=== PATIENT | male | born 1995 | race Two or more races ===

== ENCOUNTER 2022-08-17 16:41 | Emergency (ER) | payer SELFPAY ==
[2022-08-17 16:48] VITALS: BP 135/85; PULSE 78; RESP 16; TEMP 36.8; O2SAT 98; BMI 29.8
--- NOTE | 2022-08-17 16:58 | XR_ITS ---
[facility] [place] [id number] Patient Name: WESLY CORTÉS MRN: [id number] date: 1995 Sex: M Assigned Patient Location: ER Current Patient Location: ED.MAIN Accession/Order Number: [id number] Exam Date: 08/17/2022 16:59 Report Date: 08/17/2022 17:20 At the request of: DEANNA BUENO Procedure: XR toe RT min 2V STUDY: XR toe RT min 2V, [id number] HISTORY: toe pain COMPARISON: None FINDINGS/IMPRESSION: No acute fracture, dislocation, or suspicious osseous lesion. No radiopaque foreign body. Electronically authenticated by: ESTUARDO FERNANDEZ Date: 08/17/2022 17:20
--- NOTE | 2022-08-17 16:58 | ED.EXTPRO1 ---
HPI - Extremity Problem General Chief complaint: Extremity Problem, Nontraumatic Stated complaint: WOUND CHECK RIGHT FOOT Time Seen by Provider: 08/17/22 16:55 Source: patient Mode of arrival: walk-in Limitations: no limitations History of Present Illness HPI Narrative: patient is a 27-year-old male presents to the emergency Department for pain, swelling and a wound to the right 5th toe. He states he does not know if he may have injured the toe, he has had a swollen, scabbed area adjacent to the nail for the last several days. No medications taken prior to arrival. He denies any drainage from the area.. He states he is having trouble walking because of pain in the toe. Related Data Previous Rx's Medication Instructions Recorded bacitracin 500 unit/gram topical 1 applic topical DAILY #14 grams 08/17/22 ointment cephalexin 500 mg capsule 500 mg PO Q8H 10 days #21 caps 08/17/22 ketorolac 10 mg tablet 10 mg PO TID PRN pain #10 tabs 08/17/22 Allergies Allergy/AdvReac Type Severity Reaction Status Date / Time No Known Drug Allergies Allergy Verified 08/17/22 16:51 Review of Systems ROS Constitutional Denies: fever or chills Ears, nose, mouth, and throat Denies: throat pain or neck pain Respiratory Denies: shortness of breath or cough Gastrointestinal Denies: nausea or vomiting Genitourinary Denies: painful urination or urinary frequency Musculoskeletal Denies: back pain Integumentary/Breast Denies: rash Neurological Denies: headache PFSH PFSH Social History Smoking status: Current every day smoker Exam Narrative Exam Narrative: Gen.: Awake, alert, in no distress Head: Normocephalic, atraumatic ENT: Moist mucous membranes Respiratory: No respiratory distress Extremities: Moves extremities equally, right 5th toe with mild edema and minimal erythema noted proximal to the toenail. Small abrasion/scabbed area adjacent to the medial aspect of the toenail. No large areas of abscess or open wounds, no circumferential erythema or evidence of cellulitis Psych: Normal mood and affect Neuro: No focal neuro deficit Skin: Warm, dry, intact Constitutional Vital Signs - 24 hr 08/17/22 16:48 Temperature 98.2 F Pulse Rate [Monitor] 78 Respiratory Rate 16 Blood Pressure [Left Arm] 135/85 H Pulse Oximetry 98 Oxygen Delivery Method Room Air Course Vital Signs Vital signs: Vital Signs Temperature 98.2 F 08/17/22 16:48 Pulse Rate 78 08/17/22 16:48 Respiratory Rate 16 08/17/22 16:48 Blood Pressure 135/85 H 08/17/22 16:48 Pulse Oximetry 98 08/17/22 16:48 Oxygen Delivery Method Room Air 08/17/22 16:48 Temperature 98.2 F 08/17/22 16:48 Pulse Rate 78 08/17/22 16:48 Respiratory Rate 16 08/17/22 16:48 Blood Pressure 135/85 H 08/17/22 16:48 Pulse Oximetry 98 08/17/22 16:48 Oxygen Delivery Method Room Air 08/17/22 16:48 MDM - Extremity (Nontraumatic) MDM Narrative Medical decision making narrative: x-rays are unremarkable, exam is consistent with wound/abrasion versus ingrown toenail. Patient is given topical ointment, short course of Keflex and a short course of NSAIDs with a referral to podiatry. Follow-up with PCP and podiatry and return to the Emergency Room if symptoms change or worsen. Discharge Plan Discharge Chief Complaint: Extremity Problem, Nontraumatic Clinical Impression: Ingrown toenail, Wound of toenail Patient Disposition: Home, Self-Care Time of Disposition Decision: 17:11 Condition: Good Prescriptions / Home Meds: New ketorolac 10 mg tablet 10 mg PO TID PRN (Reason: pain) Qty: 10 0RF cephalexin 500 mg capsule 500 mg PO Q8H 10 Days Qty: 21 0RF bacitracin 500 unit/gram ointment 1 applic topical DAILY Qty: 14 0RF Instructions: Ingrown Nail (ED), Abrasion (ED) Additional Instructions: Follow up with Dr. Alcantara Stand Alone Forms: Portal Instructions Referrals: Physician,Non-Staff, MD [Primary Care Provider] - 1 week
== END 2022-08-17 17:42 | disposition home or self-care (01) ==
PROVIDERS: Emergency Provider Emergency Medicine Emergency Medical Services
DX: L60.0 Ingrowing nail (principal); S90.414A Abrasion, right lesser toe(s), initial encounter; F17.210 Nicotine dependence, cigarettes, uncomplicated; X58.XXXA Exposure to other specified factors, initial encounter
CPT/HCPCS: 73660; 99283

== ENCOUNTER 2022-09-20 21:30 | Emergency (ER) | payer SELFPAY ==
[2022-09-20 21:34] VITALS: BP 144/77; PULSE 101; RESP 18; TEMP 36.8; O2SAT 99; BMI 29.8
--- NOTE | 2022-09-20 21:57 | ED.WOUNDLAC1 ---
HPI - Wound/Laceration General Chief Complaint: Wound/Laceration Stated Complaint: LACERATION/PUNCTURE Time Seen by Provider: 09/20/22 21:56 Source: patient Mode of arrival: walk-in Limitations: no limitations History of Present Illness HPI narrative: cut thumb with his knife about 1:30 pm . States still bleeds on and off. Not bleeding now. not sure when last Tetanus shot Related Data Previous Rx's Medication Instructions Recorded bacitracin 500 unit/gram topical 1 applic topical DAILY #14 grams 08/17/22 ointment cephalexin 500 mg capsule 500 mg PO Q8H 10 days #21 caps 08/17/22 ketorolac 10 mg tablet 10 mg PO TID PRN pain #10 tabs 08/17/22 Allergies Allergy/AdvReac Type Severity Reaction Status Date / Time No Known Drug Allergies Allergy Verified 09/20/22 21:34 Review of Systems ROS Status of ROS 10 or more systems reviewed and unremarkable except as noted in history and below [facility] Social History Smoking status: Current every day smoker Exam Constitutional Vital Signs, click to edit/add: Last Vital Signs Temp 98.2 F 09/20/22 21:34 Pulse 101 H 09/20/22 21:34 Resp 18 09/20/22 21:34 BP 144/77 H 09/20/22 21:34 Pulse Ox 99 09/20/22 21:34 O2 Del Method Room Air 09/20/22 21:34 Common normals: no apparent distress, average body habitus, oriented x3, no limitations, healthy appearing and alert Eye Common normals: EOMs intact bilaterally and conjunctivae normal Respiratory Common normals: normal respiratory effort, no retractions and no use of accessory muscles Cardio Common normals: regular rhythm, S1 normal heart sound and S2 normal heart sound Extremity Other: superficial 12mm lac fat pad right thumb Neuro Common normals: oriented x3, CN's II-XII intact bilaterally, moves all extremities, no focal motor deficits and no sensory deficits noted Psych Appearance: grossly normal Course Vital Signs Vital signs: Vital Signs Temperature 98.2 F 09/20/22 21:34 Pulse Rate 101 H 09/20/22 21:34 Respiratory Rate 18 09/20/22 21:34 Blood Pressure 144/77 H 09/20/22 21:34 Pulse Oximetry 99 09/20/22 21:34 Oxygen Delivery Method Room Air 09/20/22 21:34 Temperature 98.2 F 09/20/22 21:34 Pulse Rate 101 H 09/20/22 21:34 Respiratory Rate 18 09/20/22 21:34 Blood Pressure 144/77 H 09/20/22 21:34 Pulse Oximetry 99 09/20/22 21:34 Oxygen Delivery Method Room Air 09/20/22 21:34 MDM - Wound/Laceration MDM Narrative Medical decision making narrative: presents with minor lac right thumb. lac repaired without incident. patient discharged home. Prescribed keflex as lac is 10 hour old. Discharge Plan Discharge Chief Complaint: Wound/Laceration Clinical Impression: Laceration of thumb Patient Disposition: Home, Self-Care Prescriptions / Home Meds: No Action ketorolac 10 mg tablet 10 mg PO TID PRN (Reason: pain) Qty: 10 0RF cephalexin 500 mg capsule 500 mg PO Q8H 10 Days Qty: 21 0RF bacitracin 500 unit/gram ointment 1 applic topical DAILY Qty: 14 0RF Instructions: Finger Laceration (ED) Additional Instructions: have wound rechecked in 2-3 days and stitches removed in 10 days Stand Alone Forms: Portal Instructions Referrals: Physician,Non-Staff, MD [Primary Care Provider] - 1 week Procedures ED Procedure Instructions Procedures Procedures: right thumb lac. 12mm superficial lac. 1% lido . cleaned with betadine and rinsed with NS. Closed with #2 3.0 prolene stitches
[2022-09-20] MEDS: ADACEL DIPH,PERTUSS(ACELL),TET VAC/PF 0.5 ML ADULT SYRINGE IM (22:10)
[2022-09-20] MEDS: CEPHALEXIN 500 MG CAPSULE PO (23:02)
== END 2022-09-20 23:10 | disposition home or self-care (01) ==
PROVIDERS: Emergency Provider Internal Medicine
DX: S61.011A Laceration without foreign body of right thumb without damage to nail, initial encounter (principal); W26.0XXA Contact with knife, initial encounter; Z23 Encounter for immunization
CPT/HCPCS: 12001; 90471; 90715; 99284

== ENCOUNTER 2022-09-30 12:55 | Emergency (ER) | payer SELFPAY ==
[2022-09-30 12:57] VITALS: BP 127/74; PULSE 68; RESP 16; TEMP 36.8; O2SAT 97; BMI 29.8
--- NOTE | 2022-09-30 13:02 | ED_ITS ---
HPI - Skin/Abscess/Foreign Bdy General Chief complaint: Skin/Abscess/Foreign Body Stated complaint: CAME TO GET STITCHES REMOVED Time Seen by Provider: 09/30/22 13:02 Source: patient Mode of arrival: walk-in Limitations: no limitations History of Present Illness HPI narrative: Patient presents to the emergency department for suture removal. Patient states he sustained a laceration to his right thumb 10 days ago. He had 2 prolene sutures. He states one of the stitches came out loose. He was taking antibiotics. He denies any problems with the laceration. Denies any signs of infection. Related Data Allergies Allergy/AdvReac Type Severity Reaction Status Date / Time No Known Drug Allergies Allergy Verified 09/30/22 13:01 Review of Systems ROS Status of ROS 10 or more systems reviewed and unremarkable except as noted in history and below [facility] Social History Smoking status: Current every day smoker Exam Constitutional Vital Signs, click to edit/add: Last Vital Signs Temp 98.2 F 09/30/22 12:57 Pulse 68 09/30/22 12:57 Resp 16 09/30/22 12:57 BP 127/74 09/30/22 12:57 Pulse Ox 97 09/30/22 12:57 O2 Del Method Room Air 09/30/22 12:57 Common normals: no apparent distress General appearance: cooperative and comfortable Orientation/consciousness: Yes awake, Yes oriented to person, Yes oriented to place and Yes oriented to time HENVT Common normals: normocephalic and head/scalp atraumatic Face and sinus: normal facial exam Eye General eye: normal appearance of both eyes Neck & C-Spine Common normals: full ROM Extremity Other: Right thumb with laceration to the distal palmar phalanx with 2 sut[address] the 2nd one is undone but still in the subcutaneous tissue. There is no erythema, no ecchymosis, no dehiscence, no signs of infection. Capillary refill is brisk. Course Vital Signs Vital signs: Vital Signs Temperature 98.2 F 09/30/22 12:57 Pulse Rate 68 09/30/22 12:57 Respiratory Rate 16 09/30/22 12:57 Blood Pressure 127/74 09/30/22 12:57 Pulse Oximetry 97 09/30/22 12:57 Oxygen Delivery Method Room Air 09/30/22 12:57 Temperature 98.2 F 09/30/22 12:57 Pulse Rate 68 09/30/22 12:57 Respiratory Rate 16 09/30/22 12:57 Blood Pressure 127/74 09/30/22 12:57 Pulse Oximetry 97 09/30/22 12:57 Oxygen Delivery Method Room Air 09/30/22 12:57 MDM - Skin/Abscess/Foreign Bdy MDM Narrative Medical decision making narrative: 2 sutures were removed without any problems. There is no dehiscence noted, no signs of infection. At this time the patient is without objective evidence of an acute process requiring hospitalization or inpatient management. The patient has remained hemodynamically stable. No additional indication for emergent studies at this time. I answered all questions. Discussed discharge instructions including standard anticipatory guidance and what should prompt a return to the emergency department, including if they get worse are not getting better or develops any new or concerning symptoms. I've given them specific time frame in which to follow-up, and who to follow-up with. The patient demonstrates understanding. Patient is nontoxic and stable for discharge with outpatient follow-up. This note was created with the assistance of a speech recognition program. Although the intention is to generate documents that actually reflects the content of the visit, no guarantees can be provided that every mistake has been identified and corrected by editing. Discharge Plan Discharge Chief Complaint: Skin/Abscess/Foreign Body Clinical Impression: Encounter for removal of sutures Patient Disposition: Home, Self-Care Time of Disposition Decision: 13:07 Condition: Good Mode of Transportation: Private Vehicle Instructions: Stitches Removal (ED) Stand Alone Forms: Portal Instructions Referrals: KISHA PARKS APRN [Physician] - 1 week Physician,Non-Staff, [Primary Care Provider] - 1 week
--- NOTE | 2022-09-30 13:08 | PC.NURSE ---
1 suture right thumb pad. Area well approximated with no S/S of infection
== END 2022-09-30 13:27 | disposition home or self-care (01) ==
LOC: ER 13:12
PROVIDERS: Emergency Provider Emergency Medicine
DX: S61.011D Laceration without foreign body of right thumb without damage to nail, subsequent encounter (principal); X58.XXXD Exposure to other specified factors, subsequent encounter
CPT/HCPCS: 99282